=== PATIENT | male | born 1975 | race Caucasian/White ===

== ENCOUNTER 2019-01-22 12:50 | Day surgery (SDC) | payer OTHER, SELFPAY ==
[2019-01-21 12:26] VITALS: BMI 51.7
[2019-01-22] VITALS (8 sets, daily range): BP systolic 130–170; BP diastolic 74–101; PULSE 98–113; RESP 12–16; TEMP 36.2–37.5; O2SAT 93–98; BMI 50.2
[2019-01-22] MEDS: LACTATED RINGERS 1,000 ML 42 ML IV (14:00)
[2019-01-22] MEDS: VANCOMYCIN 1,000 MG/200 ML PIGGYBACK 200 MG IV (14:53)
[2019-01-22] MEDS: MIDAZOLAM 2 MG/2 ML VIAL IV (15:32)
--- NOTE | 2019-01-22 15:42 | PM.PREOP ---
Pre-operative Note Interval Note History & Physical reviewed/Exam performed by Physician: No Changes to H&P: No H&P completed within 30 days and has changed as indicated here:: cor rrr, abd obese but benign, lungs clear, left knee palpable defect, quad lag
--- NOTE | 2019-01-22 15:43 | PM.OP.1 ---
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 This brought the operating room for repair is needed. Surgeon: Yamini Connolly Bull Driver: Adrienne Short Anesthesia Type: General and Peripheral nerve block Operative Notes Findings: Complete quad rupture, repaired without significant tension with multiple sutures through the patella Closure Type: primary Specimen(s): none sent Prosthetic devices, grafts, tissues, transplants, or devices: One suture anchor Estimated Blood Loss (mL): 100 Blood products transfused: none Tourniquet time (min): 70 Procedure in detail: Patient was brought to the operating room and underwent the induction of a general anesthesia. His left lower extremity was prepped draped standard sterile fashion. Time-out was performed antibiotics was given. A high thigh tourniquet was applied sterilely. It was elevated to 300 mm of mercury. Midline incision was made dissection was carried out through skin and subcutaneous tissues. Gelpi retractors were placed. He had a complex tear in his quad with significant retraction of the muscle. The muscle was meticulously mobilized and tension stitches were placed in the muscle in order to work on slow progressive lengthening. Two drill holes were made in the patella with a Beath needle. Heavy nonabsorbable sutures were meticulously were woven into the quadriceps using a Redding technique. The sutures were then meticulously advanced through the patella and carefully tied distally over a bony bridge. Multiple additional stitches were placed in the retinaculum to give supplemental fixation along the retinacular tear. One Arthrex suture anchors were also placed in the patella for supplemental repair. Marcaine and Exparel were meticulously injected. The knee was meticulously irrigated with normal saline. I placed the patient through range of motion and his range of motion was 0 to 30? without significant tension on the repair. Subcutaneous tissues were closed with homa stitches and skin rosalia. Xeroform and a sterile dressing was applied. Patient was placed in a long-leg brace in full extension. Complications: none Post-operative Condition: stable Disposition: same day surgery Plan for aftercare: Weight-bearing as tolerated on the left lower extremity, keep knee brace on at all times locked in extension a plan to keep it locked in extension for at least 3 weeks postoperatively and then allow range of motion 0-30 degrees at 3 weeks postoperatively. The quad was quite short and did require some tension to bring it back to an anatomic position.
--- NOTE | 2019-01-22 15:47 | SUR.PREOP ---
Block start time [1532] . Monitoring initiated and maintained throughout procedure. Oxygen and medications given per anesthesiologist instructions. Patient remained stable throughout procedure, no adverse reactions noted. Block end time [1540 ].
--- NOTE | 2019-01-22 16:31 | SUR.OPER ---
hinged knee brace
[2019-01-22] MEDS: ACETAMINOPHEN IV 1,000 MG/100 ML VIAL 400 MG IV (16:34)
[2019-01-22] MEDS: BUPIVACAINE 0.25% W/ EPI 30 ML VIAL INJ (17:23)
[2019-01-22] MEDS: BUPIVACAINE LIPOSOME 266 MG/20 ML VIAL INJ (17:24)
--- NOTE | 2019-01-22 17:27 | P.PCN_ITS ---
Procedures Date/Time Date of procedure: 01/22/19 Time of procedure: 15:30 Nerve Block Time out performed: Yes Local anesthetic used: lidocaine 1% (w/ epi 5mL + 15mL 0.5ropivacaine) Location of anesthetic used: femoral nerve Amount of anesthesia used (mL): 20 Nerve blocks: femoral Procedure successful: Yes Patient tolerated procedure: well Complications: none Additional comments: LEFT Femoral Nerve block for post operative pain management. R/B discussed. Site marked. Consent verified/signed. Standard ASA monitors. NC O2. 2mg versed. Chloroprep. Sterile technique. Femoral A/V/N identified at inguinal crease with US. Lidocaine skin wheal. 100mm x 21g Pajunk needle advanced with in-plane US guidance. Negative aspiration. LA injected lateral to femoral artery. Negative aspiration throughout. No pain, no paresthesia with injection. VSS. Tolerated well. To OR.
[2019-01-22] MEDS: ONDANSETRON 4 MG/2 ML INJ IV (18:16)
[2019-01-22] MEDS: hydrOXYzine pamoate 25 MG CAPSULE PO (18:35)
[2019-01-22] MEDS: OXYCODONE/ACETAMINOPHEN 5/325 TABLET 1 TAB PO (18:35)
--- NOTE | 2019-01-22 19:20 | SUR.PHASEII ---
patient demonstrated crutch use prior to discharge. crutch safety reviewed with patient and spouse.
== END 2019-01-22 19:20 | disposition home or self-care (01) ==
PROVIDERS: PCP Family Medicine; Visit Provider Orthopaedic Surgery
PROC: (CPT 27385; principal; 2019-01-22 15:00)
DX: S76.112A Strain of left quadriceps muscle, fascia and tendon, initial encounter (principal); E66.01 Morbid (severe) obesity due to excess calories; G89.18 Other acute postprocedural pain; W01.0XXA Fall on same level from slipping, tripping and stumbling without subsequent striking against object, initial encounter; Y93.69 Activity, other involving other sports and athletics played as a team or group; Z68.43 Body mass index [BMI] 50.0-59.9, adult
CPT/HCPCS: 27430; 64447; 64450; C9290; J0131; J1100; J2250; J2405; J2704; J3010

== ENCOUNTER → 2019-03-26 18:47 | Outpatient (CLI) | payer OTHER, SELFPAY | PROVIDERS: PCP Family Medicine; Visit Provider Physician Assistant | DX: L03.116 Cellulitis of left lower limb (principal); T14.8XXA Other injury of unspecified body region, initial encounter | CPT/HCPCS: 87070; 87075; 87205 ==

== ENCOUNTER 2019-04-23 21:09 | Emergency (ER) | payer OTHER, SELFPAY ==
[2019-04-23 21:10] VITALS: BP 195/102; PULSE 95; RESP 20; TEMP 36.7; O2SAT 99
--- NOTE | 2019-04-23 22:14 | ED_ITS ---
HPI - Skin/Abscess/Foreign Bdy General Chief complaint: Skin/Abscess/Foreign Body Stated complaint: leaking surgical wound site Time Seen by Provider: 04/23/19 21:33 Source: patient Mode of arrival: Ambulatory Limitations: no limitations History of Present Illness HPI narrative: Patient is a 44-year-old male who presents with left skin wound. He had his quadriceps repaired 01/22/2019. This small wound is right in the incision line. It happened yesterday he is not sure what happened to draining clear fluid it has no redness or gross pus. he has not had any fever or chills. complaint: lesion Location: LLE Related Data Home Medications Medication Instructions Recorded Confirmed acetaminophen 650 mg PO Q6H PRN 01/22/19 03/26/19 fluticasone propionate 2 spray INTRANASAL DAILY 01/22/19 03/26/19 Previous Rx's Medication Instructions Recorded hydroxyzine pamoate 25 mg PO NOW PRN #30 cap 01/22/19 mupirocin 2 % topical ointment 1 applic TOP TID #30 gram 03/26/19 Allergies Allergy/AdvReac Type Severity Reaction Status Date / Time Penicillins Allergy Unknown skin rash Verified 03/26/19 18:02 Review of Systems Review of Systems Narrative: GENERAL: Denies chills,fever HEENT: Denies throat pain RESPIRATORY: Denies dyspnea, cough, wheezing CARDIOVASCULAR: Denies chest pain, palpitations GASTROINTESTINAL: Denies nausea, vomiting MUSCULOSKELETAL: Denies extremity pain, injury SKIN: See HPI NEUROLOGIC: Denies weakness, dizziness, headache, numbness 8 point review of systems is negative except for those stated above and HPI Patient History Medical History Distal radius fracture, left (Acute) Elevated blood pressure reading without diagnosis of hypertension (Acute) History of pilonidal cyst (Acute) Morbid obesity with BMI of 50.0-59.9, adult (Acute) Plantar fasciitis (Acute) Snoring (Acute) Somnolence (Acute) Strain of left quadriceps (Acute 01/03/19) Surgical History Hx of tonsillectomy (Acute ~1980) Social History household members: spouse Smoking Status: Never smoker Smoking Status: Never smoker alcohol intake frequency: 0-2 drinks per day Substance Use Type: does not use Exam Initial Vital Signs Initial Vital Signs: Vital Signs Temperature 98.0 F 04/23/19 21:10 Pulse Rate 95 H 04/23/19 21:10 Respiratory Rate 20 04/23/19 21:10 Blood Pressure 195/102 H 04/23/19 21:10 Pulse Oximetry 99 04/23/19 21:10 GENERAL: Well-appearing, well-nourished and in no acute distress. CARDIOVASCULAR: peripheral pulses in tact, cap refill <2 sec RESPIRATORY: No respiratory distress, speaks in full sentences without difficulty EXTREMITIES: Normal range of motion, no clubbing or edema. Neurovascularly intact NEUROLOGICAL: Cranial nerves II through XII grossly intact. Normal gait and speech. SKIN: Surgical scar noted on left his anterior thigh. He has 0.25 mm wound open in the center. There is clear drainage no erythema no gross pus no tenderness no induration or fluctuation. Course Vital Signs Vital signs: Vital Signs - 8 hr 04/23/19 21:10 04/23/19 22:33 Temperature 98.0 F Pulse Rate 95 H 88 Respiratory Rate 20 16 Blood Pressure 195/102 H 168/76 H Pulse Oximetry 99 97 Discharge Plan Departure Patient Disposition: Home Clinical Impression: Wound dehiscence Discharge Date/Time: 04/23/19 22:33 Instructions: DI for Wound Dehiscence Activity Restrictions/Additional Instructions: *You have been diagnosed with possible wound dehiscence *What to do: At this time wound itself does not appear infected. Keep clean and dry with soap and water apply antibiotic ointment as directed. Keep area covered. *Continue to take medications as directed *Follow up with your primary care provider in 2-3 days *Return to ER if you should have increasing redness pus swelling or any new, worsening or concerning symptoms Prescriptions: No Action mupirocin 2 % ointment 1 applic TOP TID Qty: 30 RF: 0 acetaminophen 325 mg Tablet 650 mg PO Q6H PRN (Reason: allergies) RF: 0 fluticasone propionate 50 mcg/actuation [place],Suspension 2 spray INTRANASAL DAILY RF: 0 hydroxyzine pamoate 25 mg Capsule 25 mg PO NOW PRN (Reason: Pain, Mild (1-3)) Qty: 30 RF: 0 Referrals: Ryland Macario MD [Primary Care Provider] - Yamini Connolly MD [Physician] -
[2019-04-23 22:33] VITALS: BP 168/76; PULSE 88; RESP 16; O2SAT 97
== END 2019-04-23 22:33 | disposition home or self-care (01) ==
PROVIDERS: Emergency Provider Emergency Medicine; Family Provider Family Medicine; PCP Family Medicine
DX: T81.30XA Disruption of wound, unspecified, initial encounter (principal)
CPT/HCPCS: 99281

== ENCOUNTER → 2021-09-01 10:08 | Outpatient (CLI) | payer OTHER, SELFPAY ==
[2021-09-01 10:56] LABS: Add Manual Diff / Slide Review NO; Basophils Absolute Auto 0 /uL (0-100); Basophils Percent Auto 0.6 % (0-2); Eosinophils Absolute Auto 100 /uL (0-450); Eosinophils Percent Auto 1.6 % (2-4); Hematocrit 40.9 % (41-53); Hemoglobin 13.6 g/dL (13.5-17.5); Lymphocytes Absolute Auto 2300 /uL (1100-4500); Lymphocytes Percent Auto 29.9 % (25-40); Mean Corpuscular HGB Conc 33.2 % (30-36); Mean Corpuscular Hemoglobin 26.3 PG (26-34); Mean Corpuscular Volume 79.2 fL (80-100); Monocytes Absolute Auto 600 /uL (0-900); Monocytes Percent Auto 7.8 % (3-14); Neutrophils Absolute Auto 4600 /uL (1500-7000); Neutrophils Percent Auto 60.1 % (50-75); Platelet Count 230 X10^3/uL (150-400); Red Blood Cell Count 5.17 X10^6/uL (4.5-5.9); Red Cell Distribution Width 14.4 % (11.6-14.8); White Blood Cell Count 7.7 X10^3/uL (4.5-11.0)
[2021-09-01 11:21] LABS: Alanine Aminotransferase 24 IU/L (<50); Albumin 4.5 g/dL (3.5-5.0); Albumin Globulin Ratio 1.4 (1.0-2.8); Alkaline Phosphatase 101 U/L (38-126); Aspartate Aminotransferase 30 IU/L (17-59); BUN Creatinine Ratio 16.7 (6-22); Bilirubin Total 0.6 mg/dL (0.2-1.3); Blood Urea Nitrogen 12 mg/dL (9-20); Calcium 8.9 mg/dL (8.4-10.2); Carbon Dioxide 30 mmol/L (22-32); Chloride 103 mmol/L (98-107); Cholesterol 234 mg/dL (140-199); Estimated Glomerular Filt Rate > 60 mL/min (>60); Globulin 3.3 g/dL (1.7-4.1); Glucose 152 mg/dL (70-100); HDL Cholesterol 53 mg/dL (40-60); HEMOLYSIS < 15 (0-50); LDL Cholesterol Calculated 139 mg/dL (<100); Potassium 3.9 mmol/L (3.4-5.1); Sodium 139 mmol/L (137-145); Total Protein 7.8 g/dL (6.3-8.2); Triglycerides 211 mg/dL (35-150)
== END ==
PROVIDERS: Family Provider Family Medicine; PCP Family Medicine; Referring Provider Family Medicine; Visit Provider Family Medicine
DX: E66.01 Morbid (severe) obesity due to excess calories (principal); R03.0 Elevated blood-pressure reading, without diagnosis of hypertension; Z68.43 Body mass index [BMI] 50.0-59.9, adult; Z76.89 Persons encountering health services in other specified circumstances
CPT/HCPCS: 36415; 80053; 80061; 85025

== ENCOUNTER → 2021-09-23 09:04 | Outpatient (CLI) | payer OTHER, SELFPAY ==
[2021-09-23 16:06] LABS: Hemoglobin A1C% w Est Avg Glu 7.8 % (4.0-6.0)
== END ==
PROVIDERS: Family Provider Family Medicine; PCP Family Medicine; Referring Provider Family Medicine; Visit Provider Family Medicine
DX: R73.01 Impaired fasting glucose (principal)
CPT/HCPCS: 36415; 83036

== ENCOUNTER → 2021-11-30 12:15 | Outpatient (CLI) | payer OTHER, SELFPAY ==
[2021-11-30 13:54] LABS: Hemoglobin A1C% w Est Avg Glu 6.1 % (4.0-6.0)
== END ==
PROVIDERS: Family Provider Family Medicine; PCP Family Medicine; Visit Provider Family Medicine
DX: R30.9 Painful micturition, unspecified (principal); E11.9 Type 2 diabetes mellitus without complications
CPT/HCPCS: 36415; 83036; 87086

== ENCOUNTER → 2021-12-09 09:09 | Outpatient (CLI) | payer OTHER, SELFPAY ==
[2021-12-09 10:36] LABS: Cholesterol 175 mg/dL (140-199); HDL Cholesterol 38 mg/dL (40-60); LDL Cholesterol Calculated 113 mg/dL (<100); Triglycerides 118 mg/dL (35-150)
== END ==
PROVIDERS: Family Provider Family Medicine; PCP Family Medicine; Referring Provider Family Medicine; Visit Provider Family Medicine
DX: E78.2 Mixed hyperlipidemia (principal)
CPT/HCPCS: 36415; 80061

== ENCOUNTER → 2022-03-16 08:53 | Outpatient (CLI) | payer OTHER, SELFPAY ==
[2022-03-16 10:17] LABS: Hemoglobin A1C% w Est Avg Glu 5.6 % (4.0-6.0)
[2022-03-16 10:34] LABS: Cholesterol 194 mg/dL (140-199); HDL Cholesterol 40 mg/dL (40-60); LDL Cholesterol Calculated 134 mg/dL (<100); Triglycerides 102 mg/dL (35-150)
== END ==
PROVIDERS: Family Provider Family Medicine; PCP Family Medicine; Referring Provider Family Medicine; Visit Provider Family Medicine
DX: E11.9 Type 2 diabetes mellitus without complications (principal); E78.2 Mixed hyperlipidemia
CPT/HCPCS: 36415; 80061; 83036

== ENCOUNTER → 2022-04-15 15:51 | Outpatient (CLI) | payer OTHER, SELFPAY ==
[2022-04-15 17:15] LABS: Influenza A - CEPHEID Flu A NEGATIVE (NEGATIVE); Influenza B - CEPHEID Flu B NEGATIVE (NEGATIVE); Respiratory Syncytial Virus Negative (Negative)
[2022-04-15 17:19] LABS: COVID-19 CEPHEID 4-PLEX PCR Negative (Negative)
== END ==
PROVIDERS: Family Provider Family Medicine; PCP Family Medicine; Visit Provider Physician Assistant Medical
DX: J06.9 Acute upper respiratory infection, unspecified (principal); Z20.822 Contact with and (suspected) exposure to COVID-19
CPT/HCPCS: 0241U

== ENCOUNTER → 2022-05-16 10:00 | Outpatient (CLI) | payer OTHER, SELFPAY ==
[2022-05-16 11:53] LABS: COVID19 -Nasal RAPID Negative (Negative)
== END ==
PROVIDERS: Family Provider Family Medicine; PCP Family Medicine; Visit Provider Surgery
DX: Z01.812 Encounter for preprocedural laboratory examination (principal); Z20.822 Contact with and (suspected) exposure to COVID-19
CPT/HCPCS: 87635; C9803

== ENCOUNTER 2022-05-17 06:56 | Day surgery (SDC) | payer OTHER, SELFPAY ==
--- NOTE | 2022-05-17 | PATH_ITS ---
[facility] Accession Number: [id number] . 01 Material submitted: . rectum - RECTUM . 01 Diagnosis: Rectum, Biopsy: Hyperplastic polyp. MRV 05/19/2022 1444 Local . 01 Electronically signed: . Shana Stone MD, Pathologist NPI- [id number] . 01 Gross description: . RECTUM: Received in formalin is 1 fragment(s) of reddy, soft tissue measuring 0.3 x 0.2 x 0.2 cm submitted entirely in 1 cassette(s) /CPE 05/18/2022 0935 Local . 01 Pathologist provided ICD-10: K62.1 . 01 CPT . 140467 Specimen Comment: A courtesy copy of this report has been sent to [phone] Performed at: 01 [facility] [address] [place] [address] [id number] MD Joe Khan MD Phone: [phone]
[2022-05-17 07:36] VITALS: BP 136/89; PULSE 76; RESP 14; TEMP 36.7; O2SAT 99; BMI 46.6
[2022-05-17] MEDS: LACTATED RINGERS 1,000 ML 200 ML IV (07:44)
--- NOTE | 2022-05-17 07:52 | PM.HP.1 ---
History of Present Illness History of Present Illness Date Patient Seen: 05/17/22 Time Patient Seen: 07:52 Chief complaint: SCREENING COLONOSCOPY Narrative: The patient presents for colorectal screening. They have never had any previous examination for such. No personal or family history of colon cancer. On further history denies any recent gastrointestinal symptoms. No nausea, vomiting, abdominal pain, loss of appetite, unexplained weight loss, change in bowel habits, or blood per rectum. Patient History Medical History BMI 36.0-36.9,adult Chronic right shoulder pain Distal radius fracture, left DM2 (diabetes mellitus, type 2) Dysuria Elevated fasting blood sugar History of pilonidal cyst HTN (hypertension) Hyperlipidemia, mixed Left elbow pain ELIDA on CPAP Plantar fasciitis Skin lump of leg Snoring Somnolence Strain of left quadriceps (01/03/19) Strain of levator scapulae muscle Tension headache, chronic Surgical History History of orthopedic surgery Hx of tonsillectomy (~1980) Family & Social History Family History Father COPD (chronic obstructive pulmonary disease) Mother Hypertension CKD (chronic kidney disease) Social History: household members spouse Tobacco & Substance use: Smoking Status Never smoker alcohol intake never alcohol intake frequency 0-2 drinks per day Substance Use Type does not use Meds Home Medications and Allergies Home Medications Medication Instructions Recorded Confirmed Type Vitamin D + K2 1 tab PO DAILY 09/01/21 05/17/22 History multivit,Ca,min-iron 8 mg-folic 1 tab PO DAILY 09/01/21 05/17/22 History acid 200 mcg-lycopene 600 mcg tablet (Centrum Ultra Men's) omega 9-arx-dvj-fish oil 1,000 mg 1 cap PO DAILY 09/01/21 05/17/22 History (120 mg-180 mg) capsule (Fish Oil) lisinopril 10 mg tablet 10 mg PO DAILY #90 tabs 10/08/21 05/17/22 Rx cetirizine 10 mg tablet 10 mg PO DAILY 03/18/22 05/17/22 History timolol maleate 0.5 % eye drops 1 drp EYE-BOTH BID 03/18/22 05/17/22 History Allergies Allergy/AdvReac Type Severity Reaction Status Date / Time Penicillins Allergy Unknown skin rash Verified 05/17/22 07:28 Exam Vital Signs (past 8 hours): - 05/17/22 07:36 Temperature 98.1 F Pulse Rate 76 Respiratory Rate 14 Blood Pressure 136/89 Pulse Oximetry 99 Oxygen Delivery Method Room Air Oxygen Flow Rate 0 Oxygen Delivery Method Room Air Oxygen Flow Rate 0 Narrative Exam Narrative: General adult male alert oriented no acute distress Assessment & Plan Assessment & Plan narrative: The patient requires colorectal screening and colonoscopy is recommended. Technical details were discussed. Risks, benefits, alternatives explained. Risks including but not limited to myocardial infarction, aspiration, bleeding, pain, missed lesion, incomplete examination, need for further radiographic studies, colonic perforation, and need for major abdominal surgery were discussed. All questions were answered to their satisfaction, and they are in agreement with this plan. Time Spent With Patient Critical Care time: I spent a total of [] minutes of critical care time on this patient's care today; this time is exclusive of procedural time.
--- NOTE | 2022-05-17 08:20 | PM.OP.COLON ---
Operative Date/Time/Diagnoses Date of procedure: 05/17/22 Time of procedure: 08:20 Pre-op diagnosis: Colorectal screening Post-op diagnosis: same Procedure & Clinicians Study performed: Colonoscopy Same procedure as scheduled: Yes Indications: Colorectal screening Surgeon: Herber Palmer Procedure Notes Procedure in detail: The history and physical was performed/updated and the patient is ASA class is 3. The procedure was discussed in detail with the patient. Potential risks complications including infection, bleeding, missed diagnosis, perforation, need for surgery, and were explained. Their questions were answered and informed consent was obtained. Patient was brought to the procedure room and placed standard monitoring equipment. The patient's vital signs were monitored continuously throughout the entire procedure. Prior to starting time-out was performed. The patient was placed in the left lateral recumbent position. Procedural sedation was administered by anesthesia. Examination began with a thorough inspection of the perianal area there was no evidence of fissures, fistulae, external hemorrhoids or cutaneous malignancy. The colonoscopy scope was then placed into the anal canal and was advanced to the cecum, which was identified by the ileocecal valve, the appendiceal orifice and the confluence of the taenia. The scope was then slowly withdrawn examining colon thoroughly in all directions, irrigating it of any residual stool. FINDINGS 1. Rectum-5 mm polyp removed with Jumbo forceps 2. Sigmoid mild diverticulosis The patient tolerated the procedure well. They will be discharged once criteria are met. The prep was of good/excellent quality. The withdrawl time was 8 minutes. Specimen(s): other (Rectal polyp) Complications: none Impression: Colonic polyp Post-procedure Recommendations: High fiber diet Plan for aftercare: Follow-up dependent on pathology findings Disposition: same day surgery
[2022-05-17 08:50] VITALS: BP 106/68; PULSE 75; RESP 14; TEMP 36.7; O2SAT 100
[2022-05-17 08:55] VITALS: BP 142/94; PULSE 71; RESP 14; O2SAT 100
[2022-05-17 09:00] VITALS: BP 150/95; PULSE 68; RESP 14; O2SAT 100
[2022-05-17 09:09] VITALS: BP 148/103; PULSE 68; RESP 13; TEMP 36.6; O2SAT 99
== END 2022-05-17 09:20 | disposition home or self-care (01) ==
PROVIDERS: Family Provider Family Medicine; PCP Family Medicine; Referring Provider Surgery; Visit Provider Surgery
PROC: 0DJD8ZZ Inspection of Lower Intestinal Tract, Via Natural or Artificial Opening Endoscopic (ICD-10-PCS; CPT 45378; principal; 2022-05-17 08:15)
DX: Z12.11 Encounter for screening for malignant neoplasm of colon (principal); K57.30 Diverticulosis of large intestine without perforation or abscess without bleeding; K62.1 Rectal polyp
CPT/HCPCS: 45380; J2704

== ENCOUNTER → 2022-09-26 07:50 | Outpatient (CLI) | payer OTHER, SELFPAY ==
[2022-09-26 08:48] LABS: Cholesterol 197 mg/dL (140-199); HDL Cholesterol 43 mg/dL (40-60); LDL Cholesterol Calculated 122 mg/dL (<100); Triglycerides 158 mg/dL (35-150)
[2022-09-27 00:39] LABS: x Labcorp Estim. Avg Glu (eAG) 120 mg/dL (.); x Labcorp Hemoglobin A1c 5.8 % (4.8-5.6)
== END ==
PROVIDERS: Family Provider Family Medicine; PCP Family Medicine; Referring Provider Family Medicine; Visit Provider Family Medicine
DX: E11.9 Type 2 diabetes mellitus without complications (principal); E78.2 Mixed hyperlipidemia; I10 Essential (primary) hypertension
CPT/HCPCS: 36415; 80061; 83036

== ENCOUNTER → 2023-01-25 08:14 | Outpatient (CLI) | payer OTHER, SELFPAY ==
[2023-01-25 10:14] LABS: Creatinine Urine Random 40.1 mg/dL
[2023-01-25 10:18] LABS: Microalbumin Urine Random < 0.6 mg/dL (0-1.6)
[2023-01-25 10:27] LABS: Hemoglobin A1C% w Est Avg Glu 5.5 % (4.0-6.0)
== END ==
PROVIDERS: Family Provider Family Medicine; PCP Family Medicine; Referring Provider Family Medicine; Visit Provider Family Medicine
DX: I10 Essential (primary) hypertension (principal); E11.9 Type 2 diabetes mellitus without complications
CPT/HCPCS: 36415; 82043; 82570; 83036

== ENCOUNTER → 2023-11-17 11:35 | Outpatient (CLI) | payer OTHER, SELFPAY ==
[2023-11-17 13:17] LABS: Add Manual Diff / Slide Review NO; Basophils Absolute Auto 100 /uL (0-100); Basophils Percent Auto 1.1 % (0-2); Eosinophils Absolute Auto 300 /uL (0-450); Eosinophils Percent Auto 4.1 % (2-4); Hematocrit 40.4 % (41-53); Hemoglobin 13.4 g/dL (13.5-17.5); Lymphocytes Absolute Auto 2800 /uL (1100-4500); Lymphocytes Percent Auto 33.7 % (25-40); Mean Corpuscular HGB Conc 33.2 % (30-36); Mean Corpuscular Hemoglobin 27.3 PG (26-34); Mean Corpuscular Volume 82.1 fL (80-100); Monocytes Absolute Auto 900 /uL (0-900); Monocytes Percent Auto 10.1 % (3-14); Neutrophils Absolute Auto 4300 /uL (1500-7000); Platelet Count 257 X10^3/uL (150-400); Red Blood Cell Count 4.92 X10^6/uL (4.5-5.9); Red Cell Distribution Width 13.9 % (11.6-14.8); White Blood Cell Count 8.4 X10^3/uL (4.5-11.0)
[2023-11-17 13:33] LABS: Alanine Aminotransferase 24 IU/L (<50); Albumin 4.1 g/dL (3.5-5.0); Albumin Globulin Ratio 1.5 (1.0-2.8); Alkaline Phosphatase 73 U/L (38-126); Aspartate Aminotransferase 25 IU/L (17-59); BUN Creatinine Ratio 17.5 (6-22); Bilirubin Total 0.8 mg/dL (0.2-1.3); Blood Urea Nitrogen 14 mg/dL (9-20); Calcium 8.9 mg/dL (8.4-10.2); Carbon Dioxide 29 mmol/L (22-32); Chloride 106 mmol/L (98-107); Cholesterol 196 mg/dL (140-199); Estimated Glomerular Filt Rate > 60 mL/min (>60); Globulin 2.8 g/dL (1.7-4.1); Glucose 98 mg/dL (70-100); HDL Cholesterol 51 mg/dL (40-60); HEMOLYSIS < 15 (0-50); LDL Cholesterol Calculated 118 mg/dL (<100); Potassium 4.2 mmol/L (3.4-5.1); Sodium 139 mmol/L (137-145); Total Protein 6.9 g/dL (6.3-8.2); Triglycerides 136 mg/dL (35-150)
== END ==
PROVIDERS: Family Provider Family Medicine; PCP Family Medicine; Referring Provider Family Medicine; Visit Provider Family Medicine
DX: E11.9 Type 2 diabetes mellitus without complications (principal); Z68.36 Body mass index [BMI] 36.0-36.9, adult; E78.2 Mixed hyperlipidemia
CPT/HCPCS: 36415; 80053; 80061; 83036; 85025

== ENCOUNTER 2024-01-04 22:49 | Emergency (ER) | payer OTHER, SELFPAY ==
[2024-01-04 22:56] VITALS: BP 198/107
[2024-01-04 22:58] VITALS: BP 198/107; PULSE 86; PULSE 93; RESP 16; TEMP 37.6; O2SAT 98; BMI 48.2
[2024-01-04 23:00] VITALS: BP 191/104; PULSE 85; O2SAT 98
--- NOTE | 2024-01-04 23:01 | DI.RAD.S_ITS ---
PROCEDURE: XR CHEST 1V INDICATIONS: chest pain TECHNIQUE: One view of the chest was acquired. COMPARISON: None. FINDINGS: Surgical changes and devices: None. Lungs and pleura: Lungs are clear. No pleural effusions or pneumothorax. Mediastinum: Mediastinal contours appear normal. Heart size is normal. Bones and chest wall: No suspicious bony lesions. Overlying soft tissues appear unremarkable. IMPRESSION: No acute cardiopulmonary abnormality is seen. Dictated by: Lizandro Mattson M.D. on 01/04/2024 at 23:46 Approved by: Lizandro Mattson M.D. on 01/04/2024 at 23:47
--- NOTE | 2024-01-04 23:04 | EKG_ITS ---
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
--- NOTE | 2024-01-04 23:22 | ED.CHESTPAIN ---
HPI - Chest Pain General Chief Complaint: Chest Pain Stated Complaint: abd pain moving up to chest, fever Time Seen by Provider: 01/04/24 22:55 Source: patient Mode of arrival: Family Vehicle Limitations: no limitations History of Present Illness HPI narrative: Patient is a 48-year-old male. States that approximately 3 days ago he started to develop upper discomfort. He states that now he was still having that discomfort in his radiating to his back in his also having some slight chest discomfort. Also had fevers home 100.2. He states that ibuprofen that he was taking was improving his symptoms. He also states he feels like he was constipated. No prior abdominal surgeries. He was able to eat and drink however it does seem to make his discomfort is slightly worse. Related Data Home Medications Medication Instructions Recorded Confirmed Vitamin D + K2 1 tab PO DAILY 09/01/21 11/17/23 multivit,Ca,min-iron 8 mg-folic 1 tab PO DAILY 09/01/21 11/17/23 acid 200 mcg-lycopene 600 mcg tablet (Centrum Ultra Men's) omega 9-frm-dll-fish oil 1,000 mg 1 cap PO DAILY 09/01/21 11/17/23 (120 mg-180 mg) capsule (Fish Oil) timolol maleate 0.5 % eye drops 1 drp EYE-BOTH BID 03/18/22 11/17/23 Berberine PO 11/17/23 pimecrolimus 1 % topical cream applic topical Sebhorreic 11/17/23 11/17/23 Dermatitis turmeric 400 mg capsule mg PO 11/17/23 11/17/23 Previous Rx's Medication Instructions Recorded lisinopril 10 mg tablet See Rx Instructions .Route 12/15/23 .COMPLEX #30 tabs Allergies Allergy/AdvReac Type Severity Reaction Status Date / Time Penicillins Allergy Unknown skin rash Verified 11/17/23 11:01 Review of Systems Review of Systems ROS Unobtainable: All systems reviewed & are unremarkable except as noted in HPI and below Patient History Medical History Weight loss counseling, encounter for Acute low back pain with left-sided sciatica Acute right-sided thoracic back pain Somatic dysfunction of lower extremity Acute pain of right foot Eczema BMI 36.0-36.9,adult ELIDA on CPAP Dysuria HTN (hypertension) Strain of levator scapulae muscle Hyperlipidemia, mixed DM2 (diabetes mellitus, type 2) Elevated fasting blood sugar Chronic right shoulder pain Left elbow pain Tension headache, chronic Skin lump of leg Somnolence Snoring Plantar fasciitis History of pilonidal cyst Distal radius fracture, left Strain of left quadriceps (01/03/19) Surgical History History of orthopedic surgery Hx of tonsillectomy (~1980) Family History Father COPD (chronic obstructive pulmonary disease) Mother Hypertension CKD (chronic kidney disease) Social History household members: spouse Smoking Status: Never smoker alcohol intake: never Smoking Status: Never smoker alcohol intake frequency: 0-2 drinks per day Substance Use Type: does not use Exam Initial Vital Signs Initial Vital Signs: Vital Signs Blood Pressure 198/107 H 01/04/24 22:56 Const General: cooperative, comfortable and No ill appearing HENMT Head: normal to inspection and normocephalic Resp Effort & Inspection: normal respiratory effort Auscultation: clear to auscultation bilaterally Cardio Rate: regular rate Rhythm: regular rhythm GI Inspection: non-distended Palpation: soft, No firm, No guarding and tender (Very mild discomfort to palpation right upper quadrant) Back/Spine/Pelvis Back: No CVA tenderness Skin General: no rashes or lesions noted Neuro General: patient alert, patient awake and moves all extremities Extrem General: normal to inspection Course Orders Ordered: ED Orders 01/04/24 23:01 XR chest 1V Stat EKG-12 Lead Stat 01/04/24 23:20 Complete Blood Count AUTO DIFF Stat Comprehensive Metabolic Panel Stat Lipase Stat Magnesium Stat NT-proBNP (BNP-Adult 18+) Stat Troponin & CK Cardiac Panel Stat 01/04/24 23:40 Covid-19 + FLU A/B + RSV - PCR Stat 01/04/24 23:57 CT abdomen pelvis w con Stat Discontinued Medications Hydrocodone Bitart/Acetaminophen (Hydrocodone/Acet 5/325 Prepack) 1 bottle MISC DIRECTED ONE Stop: 01/05/24 01:08 Last Admin: 01/05/24 01:19 Dose: 1 bottle Documented By: Aspirin (Aspirin 81 Mg Chew Tab) 324 mg PO NOW ONE Stop: 01/04/24 23:01 Last Admin: 01/04/24 23:46 Dose: Not Given Documented By: BEATRICE Vital Signs Vital signs: Vital Signs - 8 hr 01/04/24 22:56 01/04/24 22:58 01/04/24 22:58 Temperature 99.7 F H Pulse Rate 93 H 86 Respiratory Rate 16 Blood Pressure 198/107 H 198/107 H Pulse Oximetry 98 98 Oxygen Delivery Method Room Air 01/04/24 23:00 01/04/24 23:00 01/04/24 23:30 Temperature Pulse Rate 85 Respiratory Rate Blood Pressure 191/104 H 193/93 H Pulse Oximetry 98 Oxygen Delivery Method 01/04/24 23:30 01/05/24 00:00 01/05/24 00:00 Temperature Pulse Rate 86 84 Respiratory Rate 13 16 Blood Pressure 181/84 H Pulse Oximetry 98 97 Oxygen Delivery Method 01/05/24 00:03 01/05/24 01:15 Temperature 98.2 F Pulse Rate 56 L 67 Respiratory Rate 22 14 Blood Pressure 105/78 168/83 H Pulse Oximetry 98 97 Oxygen Delivery Method Room Air Room Air MDM - Chest Pain Lab Data Attestation: I reviewed the patient's lab results. 01/04/24 23:20 01/04/24 23:20 Labs: Lab Results 01/04/24 01/04/24 Range/Units 23:20 23:40 WBC 15.1 H (4.5-11.0) X10^3/uL RBC 5.11 (4.5-5.9) X10^6/uL Hgb 14.2 (13.5-17.5) g/dL Hct 41.8 (41-53) % MCV 81.9 (80-100) fL MCH 27.8 (26-34) PG MCHC 33.9 (30-36) % RDW 13.8 (11.6-14.8) % Plt Count 253 (150-400) X10^3/uL Neut % (Auto) 66.2 (50-75) % Lymph % (Auto) 20.4 L (25-40) % Anderson % (Auto) 10.1 (3-14) % Eos % (Auto) 2.4 (2-4) % Baso % (Auto) 0.9 (0-2) % Neut # (Auto) 17274 H (1995-9795) /uL Lymph # (Auto) 3100 (9850-1784) /uL Anderson # (Auto) 1500 H (0-900) /uL Eos # (Auto) 400 (0-450) /uL Baso # (Auto) 100 (0-100) /uL Sodium 135 L (137-145) mmol/L Potassium 3.9 (3.4-5.1) mmol/L Chloride 101 (98-107) mmol/L Carbon Dioxide 25 (22-32) mmol/L BUN 16 (9-20) mg/dL Creatinine 0.79 (0.66-1.25) mg/dL Estimated GFR > 60 (>60) mL/min BUN/Creatinine Ratio 20.3 (6-22) Glucose 152 H (70-100) mg/dL Calcium 9.7 (8.4-10.2) mg/dL Magnesium 2.0 (1.6-2.3) mg/dL Total Bilirubin 0.6 (0.2-1.3) mg/dL AST 18 (17-59) IU/L ALT 18 (<50) IU/L Alkaline Phosphatase 76 (38-126) U/L Total Creatine Kinase 51 L (55-170) U/L Troponin I < 0.012 (0.01-0.034) ng/mL NT-Pro-B Natriuret Pep 112 (<125) pg/mL Total Protein 7.5 (6.3-8.2) g/dL Albumin 4.2 (3.5-5.0) g/dL Globulin 3.3 (1.7-4.1) g/dL Albumin/Globulin Ratio 1.3 (1.0-2.8) Lipase 109 (23-300) U/L SARS-CoV-2 (PCR) Negative (Negative) Influenza A (RT-PCR) Flu a negative (NEGATIVE) Influenza B (RT-PCR) Flu b negative (NEGATIVE) RSV (PCR) Negative (Negative) Imaging Data Chest x-ray: Radiologist's Impression: PROCEDURE: XR CHEST 1V INDICATIONS: chest pain TECHNIQUE: One view of the chest was acquired. COMPARISON: None. FINDINGS: Surgical changes and devices: None. Lungs and pleura: Lungs are clear. No pleural effusions or pneumothorax. Mediastinum: Mediastinal contours appear normal. Heart size is normal. Bones and chest wall: No suspicious bony lesions. Overlying soft tissues appear unremarkable. IMPRESSION: No acute cardiopulmonary abnormality is seen. CT scan - abdomen/pelvis: Radiologist's Impression: PROCEDURE: CT ABDOMEN PELVIS W CON INDICATIONS: Upper abdominal pain, leukocytosis and fever TECHNIQUE: After the administration of intravenous contrast, axial sections acquired from the lung bases to the pubic symphysis. Coronal and sagittal reformats were performed. For radiation dose reduction, the following was used: automated exposure control, adjustment of mA and/or kV according to patient size. COMPARISON: None. FINDINGS: Image quality: Diagnostic. Lower Chest: No significant findings. ABDOMEN: Liver: No solid mass. Gallbladder: No radiopaque gallstones or wall thickening. Biliary ducts: No biliary dilation. Pancreas: Fat stranding adjacent to the pancreatic head. Homogeneous attenuation of the pancreas. No ductal dilation. No surrounding vascular complication. No acute peripancreatic collection. Spleen: Size is within normal limits. Adrenal Glands: No adrenal nodules. Kidneys and Ureters: No hydronephrosis. No solid mass. No complex renal cystic lesion which requires follow up. Stomach and Bowel: Normal colonic caliber, without significant wall thickening. Normal appendix. Fecal debris within the small bowel. Peritoneum: No abnormal intraperitoneal fluid. No free air. Ventral Wall: No significant ventral hernia. Abdominal Nodes: No retroperitoneal or mesenteric adenopathy by size criteria. Vessels: Aorta and inferior vena cava are normal in size. PELVIS: Pelvic Organs: Unremarkable. Bladder: No bladder wall thickening, accounting for underdistention. Pelvic Nodes: No enlarged lymph nodes. Miscellaneous: No inguinal hernias are seen. Bones: No aggressive osseous abnormality. Partial sacralization L5. IMPRESSION: Acute interstitial pancreatitis without acute peripancreatic collection. No vascular complication. ECG Data Attestation: I personally reviewed and interpreted this ECG as follows: Interpretation: Sinus rhythm Ventricular rate of 88 Normal axis Normal QRS Normal QTC No ST T wave changes MDM Narrative Medical decision making narrative: Patient does have a leukocytosis of 15. He was a very benign exam. Chest x-ray shows no signs of pneumonia. Respiratory panel was negative. No skin changes concerning for cellulitis. Lungs are clear. No cough. I have low suspicion for ACS. CT scan shows pancreatitis however he was normal LFTs. Normal bilirubin and normal lipase. He was had symptoms for the past 3 days. We discussed these findings. His exam is somewhat consistent with pancreatitis as he does have pain in this area however his laboratory results do not support this. He was able to tolerate oral intake with minimal discomfort. No vomiting. Low suspicion that this is a gallstone pancreatitis given his labs in his presentation. His CT scan did not show any signs of gallbladder pathology. We discussed admission to the hospital versus discharge home and returning if his symptoms worsen. We discussed that potentially his symptoms could worsen over the next couple days and if this happens he should return. After the discussion he opted to be discharged. Recommended a clear liquid diet/bland diet that he can advance as tolerated we discussed return precautions. He expressed understanding Discharge Plan Departure Patient Disposition: Home Clinical Impression: Abdominal pain, Pancreatitis Instructions: DI for Pancreatitis, DI for Abdominal Pain-Adult Activity Restrictions/Additional Instructions: Recommend that you contact your primary care doctor for a follow-up. Be sure that you are increasing your fluids. You can start with a clear liquid diet and then advance it to a bland diet and advance it further as tolerated like we discussed. Return to the emergency department for increasing pain, vomiting, inability to tolerate oral intake or any other new or worsening symptoms. Prescriptions: No Action lisinopril 10 mg tablet See Rx Instructions .ROUTE .COMPLEX Qty: 30 2RF Dose Instruction: Take 1 tablet (10 mg) by mouth daily Rx Instructions: Take 1 tablet (10 mg) by mouth daily Centrum Ultra Men's 8 mg iron- 200 mcg-600 mcg tablet 1 tab PO DAILY Vitamin D + K2 1 tab PO DAILY Rx Instructions: Vit D = 125mcg K2 = 90mcg omega 0-qoh-mgb-fish oil [Fish Oil] 1,000 mg (120 mg-180 mg) capsule 1 cap PO DAILY timolol maleate 0.5 % drops 1 drp EYE-BOTH BID pimecrolimus 1 % cream topical Patient Comments: As needed turmeric 400 mg capsule PO Berberine 600 mg PO Referrals: Diego Nguyen DO [Primary Care Provider] - Stand Alone Forms: Patient Portal/API
[2024-01-04 23:25] LABS: Add Manual Diff / Slide Review NO; Basophils Absolute Auto 100 /uL (0-100); Basophils Percent Auto 0.9 % (0-2); Eosinophils Absolute Auto 400 /uL (0-450); Eosinophils Percent Auto 2.4 % (2-4); Hematocrit 41.8 % (41-53); Hemoglobin 14.2 g/dL (13.5-17.5); Lymphocytes Absolute Auto 3100 /uL (1100-4500); Lymphocytes Percent Auto 20.4 % (25-40); Mean Corpuscular HGB Conc 33.9 % (30-36); Mean Corpuscular Hemoglobin 27.8 PG (26-34); Mean Corpuscular Volume 81.9 fL (80-100); Monocytes Absolute Auto 1500 /uL (0-900); Monocytes Percent Auto 10.1 % (3-14); Neutrophils Absolute Auto 10000 /uL (1500-7000); Neutrophils Percent Auto 66.2 % (50-75); Platelet Count 253 X10^3/uL (150-400); Red Blood Cell Count 5.11 X10^6/uL (4.5-5.9); Red Cell Distribution Width 13.8 % (11.6-14.8); White Blood Cell Count 15.1 X10^3/uL (4.5-11.0)
[2024-01-04 23:30] VITALS: BP 193/93; PULSE 86; RESP 13; O2SAT 98
[2024-01-04 23:39] LABS: Alanine Aminotransferase 18 IU/L (<50); Albumin 4.2 g/dL (3.5-5.0); Albumin Globulin Ratio 1.3 (1.0-2.8); Alkaline Phosphatase 76 U/L (38-126); Aspartate Aminotransferase 18 IU/L (17-59); BUN Creatinine Ratio 20.3 (6-22); Bilirubin Total 0.6 mg/dL (0.2-1.3); Blood Urea Nitrogen 16 mg/dL (9-20); Calcium 9.7 mg/dL (8.4-10.2); Carbon Dioxide 25 mmol/L (22-32); Chloride 101 mmol/L (98-107); Creatine Kinase 51 U/L (55-170); Estimated Glomerular Filt Rate > 60 mL/min (>60); Globulin 3.3 g/dL (1.7-4.1); Glucose 152 mg/dL (70-100); HEMOLYSIS < 15 (0-50); Lipase 109 U/L (23-300); Potassium 3.9 mmol/L (3.4-5.1); Sodium 135 mmol/L (137-145); Total Protein 7.5 g/dL (6.3-8.2)
[2024-01-04 23:50] LABS: NT-proBNP (BNP-Adult 18+) 112 pg/mL (<125); Troponin I < 0.012 ng/mL (0.01-0.034)
--- NOTE | 2024-01-04 23:57 | DI.CT.S_ITS ---
PROCEDURE: CT ABDOMEN PELVIS W CON INDICATIONS: Upper abdominal pain, leukocytosis and fever TECHNIQUE: After the administration of intravenous contrast, axial sections acquired from the lung bases to the pubic symphysis. Coronal and sagittal reformats were performed. For radiation dose reduction, the following was used: automated exposure control, adjustment of mA and/or kV according to patient size. COMPARISON: None. FINDINGS: Image quality: Diagnostic. Lower Chest: No significant findings. ABDOMEN: Liver: No solid mass. Gallbladder: No radiopaque gallstones or wall thickening. Biliary ducts: No biliary dilation. Pancreas: Fat stranding adjacent to the pancreatic head. Homogeneous attenuation of the pancreas. No ductal dilation. No surrounding vascular complication. No acute peripancreatic collection. Spleen: Size is within normal limits. Adrenal Glands: No adrenal nodules. Kidneys and Ureters: No hydronephrosis. No solid mass. No complex renal cystic lesion which requires follow up. Stomach and Bowel: Normal colonic caliber, without significant wall thickening. Normal appendix. Fecal debris within the small bowel. Peritoneum: No abnormal intraperitoneal fluid. No free air. Ventral Wall: No significant ventral hernia. Abdominal Nodes: No retroperitoneal or mesenteric adenopathy by size criteria. Vessels: Aorta and inferior vena cava are normal in size. PELVIS: Pelvic Organs: Unremarkable. Bladder: No bladder wall thickening, accounting for underdistention. Pelvic Nodes: No enlarged lymph nodes. Miscellaneous: No inguinal hernias are seen. Bones: No aggressive osseous abnormality. Partial sacralization L5. IMPRESSION: Acute interstitial pancreatitis without acute peripancreatic collection. No vascular complication. Dictated by: Lizandro Mattson M.D. on 01/05/2024 at 0:30 Approved by: Lizandro Mattson M.D. on 01/05/2024 at 0:33
[2024-01-05] VITALS: BP 181/84; PULSE 84; RESP 16; O2SAT 97
[2024-01-05 00:03] VITALS: BP 105/78; PULSE 56; RESP 22; TEMP 36.8; O2SAT 98
[2024-01-05 00:18] LABS: Influenza A - CEPHEID Flu A NEGATIVE (NEGATIVE); Influenza B - CEPHEID Flu B NEGATIVE (NEGATIVE); Respiratory Syncytial Virus Negative (Negative)
[2024-01-05 00:21] LABS: COVID-19 CEPHEID 4-PLEX PCR Negative (Negative)
[2024-01-05 01:15] VITALS: BP 168/83; PULSE 67; RESP 14; O2SAT 97
[2024-01-05] MEDS: HYDROCODONE/ACET 5/325 PREPACK 1 BOTTLE MISC (01:19)
== END 2024-01-05 01:20 | disposition home or self-care (01) ==
PROVIDERS: Emergency Provider Emergency Medicine; Family Provider Family Medicine; PCP Family Medicine
DX: R10.10 Upper abdominal pain, unspecified (principal); K85.90 Acute pancreatitis without necrosis or infection, unspecified; R07.9 Chest pain, unspecified; Z11.52 Encounter for screening for COVID-19
CPT/HCPCS: 0241U; 36415; 71045; 74177; 80053; 82550; 83690; 83735; 83880; 84484; 85025; 93005; 99283; 99284; Q9967

== ENCOUNTER → 2024-02-21 12:00 | Outpatient (CLI) | payer OTHER, SELFPAY ==
[2024-02-21 13:06] LABS: Hemoglobin A1C% w Est Avg Glu 5.6 % (4.0-6.0)
[2024-02-21 15:26] LABS: Creatinine Urine Random 7.96 mg/dL
[2024-02-21 15:33] LABS: Microalbumin Urine Random < 0.6 mg/dL (0-1.6)
== END ==
PROVIDERS: Family Provider Family Medicine; PCP Family Medicine; Referring Provider Family Medicine; Visit Provider Family Medicine
DX: E11.9 Type 2 diabetes mellitus without complications (principal)
CPT/HCPCS: 36415; 82043; 82570; 83036

== ENCOUNTER → 2024-09-10 07:01 | Outpatient (CLI) | payer OTHER, SELFPAY ==
[2024-09-10 07:55] LABS: Add Manual Diff / Slide Review NO; Basophils Absolute Auto 100 /uL (0-100); Basophils Percent Auto 0.7 % (0-2); Eosinophils Absolute Auto 100 /uL (0-450); Eosinophils Percent Auto 1.8 % (2-4); Hematocrit 40.8 % (41-53); Hemoglobin 13.7 g/dL (13.5-17.5); Lymphocytes Absolute Auto 2600 /uL (1100-4500); Lymphocytes Percent Auto 31.3 % (25-40); Mean Corpuscular HGB Conc 33.6 % (30-36); Mean Corpuscular Volume 83.6 fL (80-100); Monocytes Absolute Auto 800 /uL (0-900); Monocytes Percent Auto 9.7 % (3-14); Neutrophils Absolute Auto 4600 /uL (1500-7000); Neutrophils Percent Auto 56.5 % (50-75); Platelet Count 193 X10^3/uL (150-400); Red Blood Cell Count 4.89 X10^6/uL (4.5-5.9); Red Cell Distribution Width 13.9 % (11.6-14.8); White Blood Cell Count 8.2 X10^3/uL (4.5-11.0)
[2024-09-10 08:03] LABS: Hemoglobin A1C% w Est Avg Glu 5.4 % (4.0-6.0)
[2024-09-10 08:08] LABS: Creatinine Urine Random 46.13 mg/dL
[2024-09-10 08:08] LABS: Alanine Aminotransferase 25 IU/L (<50); Albumin 4.3 g/dL (3.5-5.0); Albumin Globulin Ratio 1.8 (1.0-2.8); Alkaline Phosphatase 82 U/L (38-126); Aspartate Aminotransferase 26 IU/L (17-59); BUN Creatinine Ratio 26.7 (6-22); Bilirubin Total 0.6 mg/dL (0.2-1.3); Blood Urea Nitrogen 24 mg/dL (9-20); Carbon Dioxide 23 mmol/L (22-32); Chloride 105 mmol/L (98-107); Cholesterol 198 mg/dL (140-199); Estimated Glomerular Filt Rate > 60 mL/min (>60); Globulin 2.4 g/dL (1.7-4.1); Glucose 132 mg/dL (70-99); HDL Cholesterol 55 mg/dL (40-60); HEMOLYSIS < 15 (0-50); LDL Cholesterol Calculated 114 mg/dL (<100); Potassium 4.3 mmol/L (3.4-5.1); Sodium 136 mmol/L (137-145); Total Protein 6.7 g/dL (6.3-8.2); Triglycerides 143 mg/dL (35-150)
[2024-09-10 08:20] LABS: Microalbumin Urine Random < 0.6 mg/dL (0-1.6)
[2024-09-10 08:36] LABS: Prostate Specific Antigen Scrn 1.05 ng/mL (0.1-4.0)
== END ==
PROVIDERS: Family Provider Family Medicine; PCP Family Medicine; Referring Provider Family Medicine; Visit Provider Family Medicine
DX: Z12.5 Encounter for screening for malignant neoplasm of prostate (principal); E11.9 Type 2 diabetes mellitus without complications; E78.2 Mixed hyperlipidemia; Z68.36 Body mass index [BMI] 36.0-36.9, adult
CPT/HCPCS: 36415; 80053; 80061; 82043; 82570; 83036; 85025; G0103

== ENCOUNTER → 2024-11-27 09:10 | Outpatient (CLI) | payer OTHER, SELFPAY ==
[2024-11-27 09:42] LABS: Hemoglobin A1C% w Est Avg Glu 6.0 % (4.0-6.0)
[2024-11-27 09:56] LABS: Alanine Aminotransferase 25 IU/L (<50); Albumin 4.6 g/dL (3.5-5.0); Albumin Globulin Ratio 1.6 (1.0-2.8); Alkaline Phosphatase 70 U/L (38-126); Blood Urea Nitrogen 21 mg/dL (9-20); Calcium 9.5 mg/dL (8.4-10.2); Carbon Dioxide 26 mmol/L (22-32); Chloride 103 mmol/L (98-107); Cholesterol 253 mg/dL (140-199); Estimated Glomerular Filt Rate > 60 mL/min (>60); Globulin 2.8 g/dL (1.7-4.1); Glucose 123 mg/dL (70-99); HDL Cholesterol 54 mg/dL (40-60); HEMOLYSIS < 15 (0-50); Potassium 4.5 mmol/L (3.4-5.1); Sodium 137 mmol/L (137-145); Total Protein 7.4 g/dL (6.3-8.2); Triglycerides 168 mg/dL (35-150)
== END ==
PROVIDERS: Family Provider Family Medicine; PCP Family Medicine; Referring Provider Family Medicine; Visit Provider Family Medicine
DX: Z71.3 Dietary counseling and surveillance (principal); Z68.36 Body mass index [BMI] 36.0-36.9, adult; E11.9 Type 2 diabetes mellitus without complications; E78.2 Mixed hyperlipidemia; I10 Essential (primary) hypertension
CPT/HCPCS: 36415; 80053; 80061; 83036; 84402; 84403

== ENCOUNTER → 2025-03-11 09:39 | Outpatient (CLI) | payer OTHER, SELFPAY ==
[2025-03-11 10:35] LABS: Hemoglobin A1C% w Est Avg Glu 5.6 % (4.0-6.0)
[2025-03-11 10:42] LABS: Alanine Aminotransferase 20 IU/L (<50); Albumin 4.4 g/dL (3.5-5.0); Albumin Globulin Ratio 1.6 (1.0-2.8); Alkaline Phosphatase 70 U/L (38-126); Blood Urea Nitrogen 19 mg/dL (9-20); Calcium 9.1 mg/dL (8.4-10.2); Carbon Dioxide 25 mmol/L (22-32); Chloride 102 mmol/L (98-107); Cholesterol 196 mg/dL (140-199); Estimated Glomerular Filt Rate > 60 mL/min (>60); Globulin 2.7 g/dL (1.7-4.1); Glucose 110 mg/dL (70-99); HDL Cholesterol 55 mg/dL (40-60); HEMOLYSIS < 15 (0-50); Potassium 4.3 mmol/L (3.4-5.1); Sodium 135 mmol/L (137-145); Total Protein 7.1 g/dL (6.3-8.2); Triglycerides 164 mg/dL (35-150)
== END ==
PROVIDERS: Family Provider Family Medicine; PCP Family Medicine; Referring Provider Family Medicine; Visit Provider Family Medicine
DX: R79.9 Abnormal finding of blood chemistry, unspecified (principal); I10 Essential (primary) hypertension; E11.9 Type 2 diabetes mellitus without complications; E78.2 Mixed hyperlipidemia
CPT/HCPCS: 36415; 80053; 80061; 83036

== ENCOUNTER → 2025-04-23 13:12 | Outpatient (CLI) | payer OTHER, SELFPAY | PROVIDERS: Family Provider Family Medicine; PCP Family Medicine; Referring Provider Family Medicine; Visit Provider Family Medicine | DX: Z12.11 Encounter for screening for malignant neoplasm of colon (principal); I10 Essential (primary) hypertension; E11.9 Type 2 diabetes mellitus without complications; E78.2 Mixed hyperlipidemia | CPT/HCPCS: 82274 ==